=== PATIENT | female | born 1930 | race Caucasian/White ===

== ENCOUNTER 2018-05-23 01:25 | Emergency (ER) | payer MEDICARE, OTHER ==
[~2018-05-23] VITALS: Ht 157.5 cm; Wt 92.2 kg
[~2018-05-23 01:25] MED LIST: ASPI81TA85 PO; BISO5TAB5 PO; CLEADRO8 OU; CORACAP6 PO; FISH5CAP PO; IRBE150T12 PO; KLOR1TAB65 PO; LASI40TA9 PO; LATA0.0013 OU; LIDO5DIS41 TD; MOTR200T44 PO; MULTCAP PO; PERC5TAB12 PO; PRAV40TA PO; TRAM50TA2 PO; VALI2TAB PO; VITA100067 PO; VITAD1000T PO; [UNRECOGNIZED DRUG - CODE] PO
[2018-05-23] MEDS ORDERED: FLUO20CA19 (01:37)
[2018-05-23] MEDS ORDERED: TORS10TA3 (01:37)
[2018-05-23] MEDS ORDERED: POTA1TAB21 (01:37)
[2018-05-23] MEDS ORDERED: ACETAMINOPHEN TAB 650MG DOSE (2X325MG) PO ONE (03:45)
[2018-05-23 03:59] VITALS: BP 168/75
--- NOTE | 2018-05-23 08:20 | REP ---
Right rib series: Five views including PA chest. History: Injury in a fall. Comparison study: January 11, 2016. Findings: Frontal view of the chest show EKG monitoring electrodes. The aorta is tortuous and calcific as before. Heart is not enlarged. There is no evidence of pneumothorax or hydrothorax. Lung quinones are clear. 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 There is diffuse osteopenia. No acute rib fracture is appreciated. No bony destructive lesion is seen. Impression: No rib fractures seen. Electronically Signed by Zeke Horne MD 05/23/2018 09:12 A
== END 2018-05-23 04:01 | disposition home or self-care (01) ==
LOC: M ED 01:25
DX: S20.211A Contusion of right front wall of thorax, initial encounter (principal); W01.0XXA Fall on same level from slipping, tripping and stumbling without subsequent striking against object, initial encounter; Y92.099 Unspecified place in other non-institutional residence as the place of occurrence of the external cause; Y93.9 Activity, unspecified; Y99.9 Unspecified external cause status; I50.9 Heart failure, unspecified; I25.2 Old myocardial infarction; I10 Essential (primary) hypertension; E78.5 Hyperlipidemia, unspecified; M10.9 Gout, unspecified; Z79.82 Long term (current) use of aspirin; Z79.899 Other long term (current) drug therapy; Z88.2 Allergy status to sulfonamides

== ENCOUNTER 2019-01-21 12:56 | Emergency (ER) | payer MEDICARE, OTHER ==
[~2019-01-21] VITALS: Ht 160 cm; Wt 95.5 kg
[~2019-01-21 12:56] MED LIST changes: -BISO5TAB5 PO; +BISO5TAB9 PO; +CHOL100029 PO; +FLUO20CA19; +POTA1TAB21; +TORS10TA3; -VITAD1000T PO
--- NOTE | 2019-01-21 13:43 | REP ---
Clinical: Trauma. Technique: AP, lateral, bilateral oblique views of the right ankle. Findings: There is a nondisplaced fracture of the lateral malleolus/distal fibular metaphysis with overlying soft tissue swelling. Underlying age-related osteopenia and degenerative changes noted. Lateral view demonstrates calcaneal heal spur. Impression: Lateral malleolus/fibular metaphyseal fracture with overlying soft tissue swelling. Electronically Signed by Manoj Anton MD 01/21/2019 01:34 P
[2019-01-21 14:50] VITALS: BP 152/72
== END 2019-01-21 14:52 | disposition home or self-care (01) ==
LOC: M ED 12:56
DX: S82.64XA Nondisplaced fracture of lateral malleolus of right fibula, initial encounter for closed fracture (principal); W19.XXXA Unspecified fall, initial encounter; Y92.099 Unspecified place in other non-institutional residence as the place of occurrence of the external cause; Y93.9 Activity, unspecified; Y99.9 Unspecified external cause status; I25.2 Old myocardial infarction; I10 Essential (primary) hypertension; H40.9 Unspecified glaucoma; Z79.82 Long term (current) use of aspirin; Z79.899 Other long term (current) drug therapy; Z88.2 Allergy status to sulfonamides
CPT/HCPCS: 29515; 73610; 99283; G0463

== ENCOUNTER → 2019-02-05 | Outpatient (CLI) | payer MEDICARE, OTHER ==
[~2019-02-05] MED LIST changes: +BISO5TAB14 PO; -BISO5TAB9 PO
--- NOTE | 2019-02-05 13:50 | REP ---
Chest x-ray: Three views. History: Dizziness. Cough. Comparison study May 23, 2018. Findings: The lungs are symmetrically aerated and clear. Pleural angles are sharp. The heart is borderline in size, CT ratio 48.1%. No pleural effusion is seen. Pulmonary vasculature is not increased. No infiltrate is seen. The aorta is tortuous. There are degenerative changes in the thoracic spine. There are clips in right upper quadrant of the abdomen. Impression: Borderline heart size unchanged . Otherwise no acute disease. No infiltrate seen. Electronically Signed by Zeke Horne MD 02/05/2019 01:42 P
== END ==
LOC: M LRY 13:26
PROVIDERS: ATTEND Physician Assistant
DX: R42 Dizziness and giddiness (principal); R05 Cough; M51.34 Other intervertebral disc degeneration, thoracic region
CPT/HCPCS: 71046; 82948; G0463

== ENCOUNTER 2019-04-04 03:22 | Inpatient (IN) | payer MEDICARE, OTHER ==
[~2019-04-04] VITALS: Ht 160 cm; Wt 99.1 kg
[~2019-04-04 03:22] MED LIST changes: -FLUO20CA19; +FLUO20CA22 PO; -IRBE150T12 PO; +IRBE150T7 PO; -POTA1TAB21; +POTA1TAB21 PO; -TORS10TA3; +TORS10TA3 PO
[2019-04-04 04:00] LABS: HEMATOCRIT 39.4 % (36.0-47.0); HEMOGLOBIN 13.3 g/dl (12.0-15.5); MEAN CORPUSCULAR HEMOGLOBIN 31.5 pg (27.0-33.0); MEAN CORPUSCULAR HGB CONC 33.8 g/dl (32.0-36.5); MEAN CORPUSCULAR VOLUME 93.4 fl (80.0-96.0); PLATELET COUNT, AUTOMATED 137 10^3/uL (150-450); RED BLOOD COUNT 4.22 10^6/uL (4.00-5.40); WHITE BLOOD COUNT 27.4 10^3/uL (4.0-10.0)
[2019-04-04 04:12] LABS: INR 1.36; PROTHROMBIN TIME 16.5 SECONDS (11.8-14.0)
[2019-04-04 04:27] LABS: ALBUMIN 3.3 GM/DL (3.2-5.2); ALT/SGPT 41 U/L (12-78); BILIRUBIN,TOTAL 1.6 MG/DL (0.2-1.0); BLOOD UREA NITROGEN 15 MG/DL (7-18); CALCIUM LEVEL 8.7 MG/DL (8.8-10.2); CARBON DIOXIDE LEVEL 27 MEQ/L (21-32); CHLORIDE LEVEL 100 MEQ/L (98-107); CK-MB VALUE MASS 1.6 NG/ML (<3.6); CPK CREATINE PHOSPHOKINASE 79 U/L (26-192); CREATININE FOR GFR 0.86 MG/DL (0.55-1.30); GLOMERULAR FILTRATION RATE > 60.0 (>32); GLUCOSE, FASTING 114 MG/DL (70-100); LIPASE 45 U/L (73-393); MB/CK RELATIVE INDEX 2.03 (< OR =4); POTASSIUM SERUM 4.1 MEQ/L (3.5-5.1); SODIUM LEVEL 135 MEQ/L (136-145); TOTAL PROTEIN 6.4 GM/DL (6.4-8.2); TROPONIN I < 0.02 NG/ML (< 0.10)
--- NOTE | 2019-04-04 06:44 | REPVR ---
PROCEDURE INFORMATION: Exam: XR Chest, 2 Views Exam date and time: 04/04/2019 4:03 AM Age: 89 years old Clinical indication: Shortness of breath; Additional info: SOB TECHNIQUE: Imaging protocol: XR of the chest Views: 2 views. COMPARISON: CR CHEST 2 VIEW 02/05/2019 1:30 PM FINDINGS: Lungs: There is a 6.1 x 6.8 cm right upper lobe lung opacity. Pleural space: Unremarkable. No pleural effusion. No pneumothorax. Heart/Mediastinum: Unremarkable. No cardiomegaly. Bones/joints: 1.3 cm calcifications seen inferior to the right shoulder joint. Other findings: Post cholecystectomy surgical clip seen in the right upper abdominal quadrant. IMPRESSION: 1. 6.1 x 6.8 cm ill-defined right upper lobe lung opacity possibly pneumonic infiltrate in the right clinical setting however other underlying etiologies cannot be excluded. Correlate clinically. Follow-up to resolution is recommended. 2. 1.3 cm calcification inferior to the right shoulder joint. The differential includes loose joint body. Correlate with clinical history and symptoms. If indicated MRI may be obtained for further evaluation. Electronically signed by: Alli Crisostomo On 04/04/2019 06:44:06 AM
[2019-04-04] MEDS ORDERED: ACETAMINOPHEN TAB 650MG DOSE (2X325MG) PO ONE (06:45)
[2019-04-04] MEDS: NS 1,000 ML IV SCH ×3 (06:52→19:56)
[2019-04-04] MEDS: GASTROGRAFIN SOLUTION 30ML PO SCH ×2 (07:09→08:12)
[2019-04-04] MEDS ORDERED: ISOVUE-370 76% 100ML VIAL (Q9967) As Ordered ONE (08:44)
--- NOTE | 2019-04-04 09:14 | REP ---
Clinical: Acute epigastric pain. Technique: Axial contrast enhanced images from the lung bases to the pubic symphysis using oral (per protocol) and 100 ml Isovue 370 intravenous contrast material with coronal and sagittal re-formations. Comparison: None. Findings: Lung bases are clear. Visualized heart and pericardium normal. Hepatic steatosis noted without focal hepatic lesion. Evidence of prior cholecystectomy. Spleen, pancreas, and bilateral adrenal glands are normal. Kidneys demonstrate age-related changes including scattered cysts measuring up to 1.1 cm diameter. No perinephric stranding or hydronephrosis. The enteric system is without obstruction or acute inflammatory process. Pelvis demonstrates collapsed bladder and age-appropriate uterus/adnexa. No pelvic fluid or ascites. No free air. No adenopathy. Abdominal aorta without aneurysm or dissection. m age-related degenerative changes without obvious acute process. Impression: 1. Hepatic steatosis. 2. Age-related changes to the kidneys with scattered cysts. 3. No acute abdominopelvic pathology appreciated. Electronically Signed by Manoj Anton MD 04/04/2019 09:06 A
[2019-04-04 09:26] LABS: BASO # 0.1 10^3/uL (0.0-0.2); BASO % 0.2 % (0.0-1.0); LYMPH # 1.2 10^3/uL (1.5-5.0); LYMPH % 4.4 % (24.0-44.0); MONO # 1.7 10^3/uL (0.0-0.8); MONO % 6.2 % (0.0-5.0); NEUTROPHILS # 23.2 10^3/uL (1.5-8.5); NEUTROPHILS % 87.1 % (36.0-66.0)
[2019-04-04] MEDS ORDERED: AZITHROMYCIN INJ 500 MG, VIAL MATE ADAPTER 1 EACH in D5W 250 ML IV ONE (09:30)
[2019-04-04] MEDS ORDERED: cefTRIAXone SOD 2 GM in D5W MINI-BAG PLUS 50 ML IV ONE (09:30)
[2019-04-04] MEDS ORDERED: FISH1000 PO (10:18)
[2019-04-04] MEDS ORDERED: XALA0.007 OU (10:18)
[2019-04-04] MEDS ORDERED: ACET-897 PO (10:18)
[2019-04-04] MEDS ORDERED: OSEL75CA PO (10:18)
[2019-04-04] MEDS ORDERED: CALC600T60 PO (10:18)
[2019-04-04] MEDS ORDERED: DOCUSATE SODIUM 100 MG CAP PO PRN (11:15)
[2019-04-04] MEDS: ACETAMINOPHEN TAB 650MG DOSE (2X325MG) PO PRN ×3 (11:40→20:04)
--- NOTE | 2019-04-04 14:22 | HPE ---
DATE OF ADMISSION: 04/04/2019 TIME: Approximately 11:00 a.m. CHIEF COMPLAINT: Abdominal pain. HISTORY OF PRESENT ILLNESS: Mrs. Mckeon is an 89-year-old woman who has a past medical history of hypertension, hyperlipidemia, degenerative disc disease, who presented to the hospital with complaints of abdominal pain. The patient reports developing nausea, vomiting, diarrhea that started approximately 5 days ago associated with abdominal pain. She has been slowly developing worsening symptoms with mild productive cough. She denies having any fevers or chills. Her daughter has been recently sick with pneumonia, as has her . She was evaluated in the emergency department. Chest x-ray showed that she had a right [place] [id number]. To investigate abdominal pain, a complete metabolic profile as done, which was found to be normal. The patient underwent a CT of the abdomen and pelvis, which showed no acute intraabdominal pathology. She was treated with intravenous Rocephin, as well as Zithromax and admitted to the hospitalist service for treatment of community acquired pneumonia. ALLERGIES: SULFA medications. CURRENT HOME MEDICATIONS: - Tylenol 500 mg at bedtime - baby aspirin daily - bisoprolol 5 mg at bedtime - calcium carbonate 600 mg twice a day - fluoxetine 20 mg at bedtime - irbesartan 150 mg at bedtime - Xalatan 0.005% one drop OU at night - multivitamin one capsule daily - fish oil 1000 mg twice a day - potassium 24 mg by mouth daily - pravastatin 40 mg at bedtime - torsemide 10 mg by mouth daily PAST MEDICAL HISTORY: Notable for: 1. Hypertension. 2. Hyperlipidemia. 3. Glaucoma. 4. Degenerative disc disease. PAST SURGICAL HISTORY: Notable for: 1. Cholecystectomy. 2. section. 3. Tonsillectomy. SOCIAL HISTORY: The patient is and resides at home with her . She is retired. She does not use any alcohol, tobacco or illicit drugs. She lists herself as a FULL CODE with her as her surrogate medical decision-maker. FAMILY HISTORY: Notable for both parents who had heart disease. REVIEW OF SYSTEMS: 12-system reviewed with the patient and otherwise negative. She denies having any recent travel. PHYSICAL EXAMINATION: The patient's temperature is 98.9, pulse 72 and regular, respiratory rate is 18, blood pressure 120/58, oxygen saturation 94% on room air. GENERAL: The patient is alert and oriented times three. She does not appear to be acutely ill. HEAD: Atraumatic, normocephalic. ENT: Pupils are symmetric and reactive to light. Oropharynx is clear. NECK: Supple. LUNGS: Clear to auscultation without rales, wheezes or rhonchi. HEART: S1, S2. ABDOMEN: Soft, nontender, nondistended with active bowel sounds. EXTREMITIES: Without cyanosis, clubbing or edema. NEUROLOGIC: Cranial nerves II through XII are grossly intact. No focal deficits are appreciated. RELEVANT LABORATORIES: Chest x-ray shows left upper lobe infiltrate. CT of the abdomen and pelvis showed no acute pathology, reference full report for details. Sodium 135, potassium 4.1, chloride 100, bicarbonate 27, BUN 15, creatinine 0.86, lipase is 45, white count 65933, hemoglobin 13, hematocrit 38, platelet counts are 137,000. IMPRESSION: 1. Community acquired pneumonia with leukocytosis of 27,000. 2. Mild thrombocytopenia, likely due to acute infection. 3. Hypertension. 4. Hyperlipidemia. PLAN: The patient will be admitted to inpatient status. She will have more than two midnight hospital stay. She will be continued on intravenous Rocephin and Zithromax. Blood cultures times two have been drawn in the emergency room and are pending. We will check sputum gram-stain and culture, Legionella, as well as Strep antigens. She will be continued on the majority of her home medications, please see medical orders for details. She will be a FULL CODE. She will be placed on Lovenox for deep vein thrombosis (DVT) prophylaxis. We will monitor her platelet count while she is receiving Lovenox.
[2019-04-04 15:00] VITALS: BP 137/66
[2019-04-04] MEDS: ENOXAPARIN 40 MG/0.4 ML SYRINGE (J1650) SC SCH (15:01)
[2019-04-04] MEDS: DOXYCYCLINE HYCLATE 100 MG in D5W MINI-BAG PLUS 100 ML IV SCH ×2 (15:01→23:24)
[2019-04-04] MEDS: guaiFENesin/CODEINE SYRUP 5 ML UDC PO PRN (16:33)
[2019-04-04] MEDS: PRAVASTATIN 20 MG TAB PO SCH (20:00)
[2019-04-04] MEDS: LATANOPROST 0.005% OPHTH SOLN 2.5 ML OU SCH (20:00)
[2019-04-04] MEDS: IRBESARTAN 150 MG TAB PO SCH (20:00)
[2019-04-04] MEDS: FLUoxetine 20 MG CAP PO SCH (20:00)
[2019-04-04] MEDS: bisoproloL fumarate 5 MG TAB PO SCH (20:01)
--- NOTE | 2019-04-04 20:08 | ECGEPIP ---
[facility] - ED Test Date: 2019-04-04 Pat Name: EDDIE BOWMAN Department: Room: - Gender: Female [employer]: : 1930 Requested By: ELEANOR Yuan Order Number: [id number] Reading MD: Concha Hale Measurements Intervals [place] Rate: 76 P: 42 HI: 169 QRS: 4 QRSD: 94 T: 51 QT: 356 QTc: 402 Interpretive Statements SINUS RHYTHM NSTTW abnormalities SIMILAR 01/12/16 Electronically Signed on 04-04-2019 20:07:53 EST by Concha Hale
[2019-04-04 22:00] VITALS: BP 137/66
[2019-04-05] MEDS: ACETAMINOPHEN TAB 650MG DOSE (2X325MG) PO PRN ×3 (02:35→23:31)
[2019-04-05] MEDS: NS 1,000 ML IV SCH ×4 (02:36→20:25)
[2019-04-05] MEDS: CETIRIZINE (ZyrTEC) 10 MG TAB PO SCH (02:52)
[2019-04-05 06:00] VITALS: BP 139/68
[2019-04-05 06:51] LABS: ALBUMIN 2.5 GM/DL (3.2-5.2); ALT/SGPT 35 U/L (12-78); BILIRUBIN,TOTAL 0.6 MG/DL (0.2-1.0); BLOOD UREA NITROGEN 10 MG/DL (7-18); CALCIUM LEVEL 7.5 MG/DL (8.8-10.2); CARBON DIOXIDE LEVEL 25 MEQ/L (21-32); CHLORIDE LEVEL 109 MEQ/L (98-107); CREATININE FOR GFR 0.65 MG/DL (0.55-1.30); GLOMERULAR FILTRATION RATE > 60.0 (>32); GLUCOSE, FASTING 90 MG/DL (70-100); POTASSIUM SERUM 3.6 MEQ/L (3.5-5.1); SODIUM LEVEL 140 MEQ/L (136-145); TOTAL PROTEIN 5.8 GM/DL (6.4-8.2)
[2019-04-05 08:16] LABS: HEMOGLOBIN 11.8 g/dl (12.0-15.5); MEAN CORPUSCULAR HEMOGLOBIN 32.2 pg (27.0-33.0); MEAN CORPUSCULAR HGB CONC 33.7 g/dl (32.0-36.5); MEAN CORPUSCULAR VOLUME 95.4 fl (80.0-96.0); PLATELET COUNT, AUTOMATED 118 10^3/uL (150-450); RED BLOOD COUNT 3.67 10^6/uL (4.00-5.40); WHITE BLOOD COUNT 23.7 10^3/uL (4.0-10.0)
[2019-04-05] MEDS: ASPIRIN 81 MG ENTERIC TAB PO SCH (08:34)
[2019-04-05] MEDS: TORSEMIDE 10 MG TABLET PO SCH (08:34)
[2019-04-05] MEDS: POTASSIUM CHLORIDE 10 MEQ SR TABLET PO SCH (08:34)
[2019-04-05] MEDS: ENOXAPARIN 40 MG/0.4 ML SYRINGE (J1650) SC SCH (08:35)
[2019-04-05] MEDS: cefTRIAXone SOD 1 GM in D5W MINI-BAG PLUS 50 ML IV SCH (09:53)
[2019-04-05] MEDS ORDERED: NYSTATIN 100,000 UNITS/GM TOPICAL PWD 15 GM TOP PRN (10:30)
[2019-04-05] MEDS ORDERED: AZITHROMYCIN INJ 500 MG, VIAL MATE ADAPTER 1 EACH in D5W 250 ML IV SCH (11:00)
[2019-04-05] MEDS: DOXYCYCLINE HYCLATE 100 MG in D5W MINI-BAG PLUS 100 ML IV SCH ×2 (11:24→23:31)
[2019-04-05] MEDS: guaiFENesin/CODEINE SYRUP 5 ML UDC PO PRN (11:24)
--- NOTE | 2019-04-05 12:27 | IPNPDOC ---
Subjective Date Seen The patient was seen on 04/05/19. Subjective Chief Complaint/HPI Jessica is feeling better this morning, reports sob with activity. she is not requiring oxygen and has not had any fevers. Objective Physical Examination General Exam: Positive: Alert Eye Exam: Positive: EOMI; Negative: Sclera icteric ENT Exam: Positive: Atraumatic Neck Exam: Positive: Supple Chest Exam: Positive: Clear to auscultation, Normal air movement Heart Exam: Positive: Rate Normal, Regular Rhythm Abdomen Exam: Positive: Normal bowel sounds Extremity Exam: Negative: Clubbing, Cyanosis, Edema Skin Exam: Positive: Nl turgor and temperature Neuro Exam: Positive: Normal Speech, Strength at 5/5 X4 ext Assessment /Plan Assessment # Community acquired pneumonia with leukocytosis - wbc trending lower with IV abx therapy - likely needs another 2 days of IV abx prior to discharge home - CBC in am # Mild thrombocytopenia - stable, continue to monitor platelet count on lovenox # Hypertension - controlled with torsemide + avapro + bisprolol # Hyperlipidemia - stable on atorvastatin Plan/VTE VTE Prophylaxis Ordered?: Yes VTE Exclusion Mechanical Proph: N/A:VTE Prophy Ordered VTE Exclusion Pharmacological: N/A:VTE Prophy Ordered VS, I&O, 24H, Fishbone Vital Signs/I&O Vital Signs Date Time Temp Pulse Resp B/P (MAP) Pulse Ox O2 Delivery O2 Flow Rate FiO2 04/05/19 06:00 97.8 68 18 139/68 (91) 91 Room Air I&O- Last 24 Hours up to 6 AM 04/05/19 06:00 Intake Total 3070 ml Output Total 50 ml Balance 3020 ml Laboratory Data 24H LABS Laboratory Tests 2 04/05/19 05:41: 04/05/19 06:07: Nucleated Red Blood Cells % (auto) 0.0 04/05/19 06:10: Anion Gap 6L, Glomerular Filtration Rate > 60.0, Calcium Level 7.5L, Total Bilirubin 0.6#, Aspartate Amino Transf (AST/SGOT) 29, Alanine Aminotransferase (ALT/SGPT) 35, Alkaline Phosphatase 55, Total Protein 5.8L, Albumin 2.5#L, Albumin/Globulin Ratio 0.76L CBC/BMP Laboratory Tests 04/05/19 06:07 04/05/19 06:10 Microbiology Microbiology 04/05/19 Gram Stain, Received Pending 04/05/19 Sputum Culture, Received Pending 04/04/19 Blood Culture - Preliminary, Resulted No growth after 24 hours . All specim... 04/04/19 Blood Culture - Preliminary, Resulted No growth after 24 hours . All specim... NIGHAT LONG MD Apr 05, 2019 12:27
[2019-04-05 14:00] VITALS: BP 129/71
[2019-04-05] MEDS: ALBUTEROL SULFATE 2.5 MG/0.5 ML INH NEB SOLN INH PRN (16:20)
[2019-04-05 20:22] VITALS: BP 131/63
[2019-04-05] MEDS: IRBESARTAN 150 MG TAB PO SCH (20:22)
[2019-04-05] MEDS: PRAVASTATIN 20 MG TAB PO SCH (20:22)
[2019-04-05] MEDS: FLUoxetine 20 MG CAP PO SCH (20:22)
[2019-04-05] MEDS: LATANOPROST 0.005% OPHTH SOLN 2.5 ML OU SCH (20:22)
[2019-04-05] MEDS: bisoproloL fumarate 5 MG TAB PO SCH (20:22)
[2019-04-05 22:00] VITALS: BP 131/63
[2019-04-06] MEDS: ACETAMINOPHEN TAB 650MG DOSE (2X325MG) PO PRN ×2 (03:38→12:27)
[2019-04-06] MEDS: ALBUTEROL SULFATE 2.5 MG/0.5 ML INH NEB SOLN INH PRN ×2 (03:52→13:21)
[2019-04-06 06:00] VITALS: BP 137/69
[2019-04-06] MEDS: NS 1,000 ML IV SCH ×2 (06:07→11:59)
[2019-04-06 06:49] LABS: HEMATOCRIT 35.5 % (36.0-47.0); HEMOGLOBIN 11.8 g/dl (12.0-15.5); MEAN CORPUSCULAR HEMOGLOBIN 31.6 pg (27.0-33.0); MEAN CORPUSCULAR HGB CONC 33.2 g/dl (32.0-36.5); MEAN CORPUSCULAR VOLUME 95.2 fl (80.0-96.0); PLATELET COUNT, AUTOMATED 129 10^3/uL (150-450); RED BLOOD COUNT 3.73 10^6/uL (4.00-5.40); WHITE BLOOD COUNT 14.3 10^3/uL (4.0-10.0)
[2019-04-06] MEDS: cefTRIAXone SOD 1 GM in D5W MINI-BAG PLUS 50 ML IV SCH (09:33)
[2019-04-06] MEDS: TORSEMIDE 10 MG TABLET PO SCH (09:34)
[2019-04-06] MEDS: CETIRIZINE (ZyrTEC) 10 MG TAB PO SCH (09:34)
[2019-04-06] MEDS: ASPIRIN 81 MG ENTERIC TAB PO SCH (09:34)
[2019-04-06] MEDS: POTASSIUM CHLORIDE 10 MEQ SR TABLET PO SCH (09:34)
[2019-04-06] MEDS: ENOXAPARIN 40 MG/0.4 ML SYRINGE (J1650) SC SCH (09:34)
[2019-04-06] MEDS ORDERED: CEFU50TA PO (10:34)
--- NOTE | 2019-04-06 10:41 | IPNPDOC ---
Subjective Date Seen The patient was seen on 04/06/19. Subjective Chief Complaint/HPI c/o wheezing overnight, none this morning Objective Physical Examination General Exam: Positive: Alert Eye Exam: Positive: EOMI; Negative: Sclera icteric ENT Exam: Positive: Atraumatic Neck Exam: Positive: Supple Chest Exam: Positive: Clear to auscultation, Normal air movement; Negative: Rales, Rhonchi, Wheezing Heart Exam: Positive: Rate Normal, Regular Rhythm Abdomen Exam: Positive: Normal bowel sounds Extremity Exam: Negative: Clubbing, Cyanosis, Edema Skin Exam: Positive: Nl turgor and temperature Neuro Exam: Positive: Normal Speech, Strength at 5/5 X4 ext Assessment /Plan Assessment # Community acquired pneumonia with leukocytosis - wbc continues to improve - discharge home today with cefuroxime 500 mg bid x 5 days more - not requiring oxygen # Mild thrombocytopenia - stable, with improvement from yesterday # Hypertension - controlled with torsemide + avapro + bisprolol # Hyperlipidemia - stable on atorvastatin Plan/VTE VTE Prophylaxis Ordered?: Yes VTE Exclusion Mechanical Proph: N/A:VTE Prophy Ordered VTE Exclusion Pharmacological: N/A:VTE Prophy Ordered VS, I&O, 24H, Fishbone Vital Signs/I&O Vital Signs Date Time Temp Pulse Resp B/P (MAP) Pulse Ox O2 Delivery O2 Flow Rate FiO2 04/06/19 06:00 97.0 60 19 137/69 (91) 95 Room Air I&O- Last 24 Hours up to 6 AM 04/06/19 06:00 Intake Total 850 ml Output Total 150 ml Balance 700 ml Laboratory Data 24H LABS Laboratory Tests 2 04/06/19 06:16: Nucleated Red Blood Cells % (auto) 0.0 CBC/BMP Laboratory Tests 04/06/19 06:16 Microbiology Microbiology 04/05/19 Gram Stain - Final, Complete 04/05/19 Sputum Culture - Final, Complete 04/04/19 Blood Culture - Preliminary, Resulted No Growth after 48 hours. All Specime... 04/04/19 Blood Culture - Preliminary, Resulted No Growth after 48 hours. All Specime... NIGHAT LONG MD Apr 06, 2019 10:41
[2019-04-06] MEDS: DOXYCYCLINE HYCLATE 100 MG in D5W MINI-BAG PLUS 100 ML IV SCH (11:57)
--- NOTE | 2019-04-09 19:41 | DSES ---
DATE OF ADMISSION: 04/04/2019 DATE OF DISCHARGE: 04/06/2019 DISCHARGE DIAGNOSES: 1. Community-acquired pneumonia. 2. Mild thrombocytopenia. 3. Hypertension. 4. Hyperlipidemia. PROCEDURES PERFORMED DURING THIS HOSPITALIZATION: None., CONSULTANTS ON THE CASE: None. DISPOSITION: Patient is discharged to home in stable condition,. DISCHARGE INSTRUCTIONS: Patient is instructed to take antibiotics as prescribed. Followup with her primary care provider (PCP) within a week. CONDITION ON DISCHARGE: Improved from admission. IMAGING STUDIES OBTAINED DURING THE PATIENT'S HOSPITAL STAY: 1. Chest x-ray, which showed that she had a right upper lobe lung opacity. 2. CT of the abdomen and pelvis, which showed hepatic steatosis, age-related changes to the kidneys with scattered cysts. No acute intraabdominal pathology was noted. DISCHARGE MEDICATIONS: - ceftizoxime 500 mg twice a day for five days Patient is advised to resume her previous home medications without any changes at discharge. RELEVANT LABORATORIES: Sputum culture could not be completed secondary to contamination with oropharyngeal organisms. Blood cultures times two showed no growth. White blood cell count on admission 27,000, with treatment with intravenous antibiotics improved to 14.3; hemoglobin 9.8, hematocrit 35.5, platelet count 129,000. Sodium 140, potassium 3.6, chloride 109, bicarbonate 25, anion gap 6, BUN 10, creatinine 0.65, glucose 90. Procalcitonin was 1.84. Lipase 45. Urinalysis was unremarkable, non-indicative of infection. Urine Legionella, Streptococcus pneumoniae and urine Streptococcus pneumoniae antigens are still pending at the time of discharge. HOSPITAL COURSE: Jessica is an 89-year-old woman who had been experiencing abdominal pain, nausea, vomiting and diarrhea at home. She has had several sick contacts in her family. She presented to the hospital. She was found to have pneumonia on chest x-ray. A CT of her abdomen and pelvis was obtained to rule out any abdominal pathology. None was found. She was admitted to the hospitalist service and placed on intravenous antibiotics. Her preliminary white count on admission was in the range of 26 or 27,000. She was treated with intravenous antibiotics consisting of Rocephin and Zithromax with improvement of her white blood cell count. After 48 hours, she was doing better and she was subsequently discharged home in stable condition. A total of 30 minutes was spent completing all discharge paperwork.
[2019-04-10 00:07] LABS: BODY FLUID CULTURE Not indicated. (.); LEGIONELLA ANTIGEN URINE Negative (Negative); ORGANISM ID Not indicated. (.); SPECIMEN SOURCE Urine (.); URINE STREP PNEUMONIAE ANTIGEN Positive (Negative)
== END 2019-04-06 14:19 | disposition home or self-care (01) | DRG 195 ==
LOC: M ED 03:22 → M ED INP 11:02 → ENRESERVDT 13:42 → ENRESERVTM 13:42 → M MSPAV 14:25
PROVIDERS: ADMIT Internal Medicine; ATTEND Internal Medicine
DX: J18.9 Pneumonia, unspecified organism (principal); D69.6 Thrombocytopenia, unspecified; I10 Essential (primary) hypertension; E78.5 Hyperlipidemia, unspecified; Z79.899 Other long term (current) drug therapy; Z79.82 Long term (current) use of aspirin; H40.9 Unspecified glaucoma

== ENCOUNTER → 2020-01-10 | Outpatient (CLI) | payer MEDICARE, OTHER ==
[~2020-01-10] MED LIST changes: +ACET-897 PO; -ASPI81TA85 PO; +ASPI81TA86 PO; +CALC600T60 PO; +CEFU50TA PO; +FISH1000 PO; +OSEL75CA PO; +XALA0.007 OU
[2020-01-10 12:44] LABS: HEMATOCRIT 43.4 % (36.0-47.0); HEMOGLOBIN 14.1 g/dl (12.0-15.5); MEAN CORPUSCULAR HEMOGLOBIN 30.9 pg (27.0-33.0); MEAN CORPUSCULAR HGB CONC 32.5 g/dl (32.0-36.5); PLATELET COUNT, AUTOMATED 160 10^3/uL (150-450); RED BLOOD COUNT 4.57 10^6/uL (4.00-5.40); WHITE BLOOD COUNT 6.6 10^3/uL (4.0-10.0)
[2020-01-10 13:18] LABS: HEMOGLOBIN A1c 5.5 %
[2020-01-10 14:02] LABS: ALBUMIN 3.2 GM/DL (3.2-5.2); ALT/SGPT 35 U/L (12-78); BILIRUBIN,TOTAL 0.6 MG/DL (0.2-1.0); BLOOD UREA NITROGEN 15 MG/DL (7-18); CALCIUM LEVEL 8.7 MG/DL (8.8-10.2); CARBON DIOXIDE LEVEL 28 MEQ/L (21-32); CHLORIDE LEVEL 110 MEQ/L (98-107); CHOLESTEROL LEVEL 152 MG/DL (<200); CHOLESTEROL RISK RATIO 2.491 (<5); GLOMERULAR FILTRATION RATE > 60.0 (>32); GLUCOSE, FASTING 85 MG/DL (70-100); HDL CHOLESTEROL 61 MG/DL (>40); LDL CHOLESTEROL 72 MG/DL (<100); NON-HDL-C 91 MG/DL; POTASSIUM SERUM 4.2 MEQ/L (3.5-5.1); SODIUM LEVEL 142 MEQ/L (136-145); TOTAL PROTEIN 6.4 GM/DL (6.4-8.2); TRIGLYCERIDES LEVEL 95 MG/DL (<150)
[2020-01-10 14:13] LABS: TOTAL 25(OH) VITAMIN D 37.6 NG/ML (30.0-100.0)
== END ==
LOC: M LAB 11:45
PROVIDERS: ATTEND Family Medicine
DX: D64.9 Anemia, unspecified (principal); R53.83 Other fatigue; E03.9 Hypothyroidism, unspecified

== ENCOUNTER 2020-02-09 05:12 | Emergency (ER) | payer MEDICARE, OTHER ==
[~2020-02-09] VITALS: Ht 160 cm; Wt 91.8 kg
[2020-02-09] MEDS ORDERED: NS 1,000 ML IV ONE (06:00)
[2020-02-09 06:12] LABS: BASO % 0.5 % (0.0-1.0); EOS # 0.1 10^3/uL (0.0-0.5); EOS % 1.1 % (0.0-3.0); HEMATOCRIT 43.9 % (36.0-47.0); HEMOGLOBIN 14.1 g/dl (12.0-15.5); LYMPH # 1.6 10^3/uL (1.5-5.0); LYMPH % 18.6 % (24.0-44.0); MEAN CORPUSCULAR HEMOGLOBIN 29.9 pg (27.0-33.0); MEAN CORPUSCULAR HGB CONC 32.1 g/dl (32.0-36.5); MONO # 0.9 10^3/uL (0.0-0.8); MONO % 10.4 % (0.0-5.0); NEUTROPHILS # 6.1 10^3/uL (1.5-8.5); NEUTROPHILS % 69.2 % (36.0-66.0); PLATELET COUNT, AUTOMATED 153 10^3/uL (150-450); RED BLOOD COUNT 4.72 10^6/uL (4.00-5.40); WHITE BLOOD COUNT 8.8 10^3/uL (4.0-10.0)
[2020-02-09 06:49] LABS: BLOOD UREA NITROGEN 28 MG/DL (7-18); CARBON DIOXIDE LEVEL 31 MEQ/L (21-32); CHLORIDE LEVEL 100 MEQ/L (98-107); CREATININE FOR GFR 0.98 MG/DL (0.55-1.30); GLOMERULAR FILTRATION RATE 56.9 (>32); GLUCOSE, FASTING 101 MG/DL (70-100); SODIUM LEVEL 138 MEQ/L (136-145)
[2020-02-09 06:50] LABS: CALCIUM LEVEL 8.5 MG/DL (8.8-10.2); CK-MB VALUE MASS 1.2 NG/ML (<3.6); CPK CREATINE PHOSPHOKINASE 69 U/L (26-192); FREE T4 1.15 NG/DL (0.76-1.46); MAGNESIUM LEVEL 2.3 MG/DL (1.8-2.4); MB/CK RELATIVE INDEX 1.74 (< OR =4); NT-PRO BNP 45 PG/ML (<450); TROPONIN I < 0.02 NG/ML (< 0.10)
--- NOTE | 2020-02-09 07:02 | REPVR ---
PROCEDURE INFORMATION: Exam: XR Chest, 1 View Exam date and time: 02/09/2020 6:09 AM Age: 89 years old Clinical indication: Other: Chest pain TECHNIQUE: Imaging protocol: XR of the chest Views: 1 view. COMPARISON: CR Chest, 2 view PA, Lat 04/04/2019 3:56 AM FINDINGS: Lungs: A thin linear opacity in the left lower lung field laterally is unchanged, likely linear fibrosis. An opacity previously seen in the right upper lobe is no longer identified.There is currently no significant consolidation. Pleural space: No pleural effusions or pneumothorax identified. Heart/Mediastinum: There is stable mild cardiomegaly. Vasculature: Aortic knob calcifications are noted. Bones/joints: There are degenerative changes in both shoulders and endplate spurs are seen at multiple levels in the spine, not fully assessed. IMPRESSION: No evidence of acute pleural or parenchymal disease. Electronically signed by: Madiha Dumont On 02/09/2020 07:02:13 AM
[2020-02-09 12:43] LABS: CK-MB VALUE MASS 1.2 NG/ML (<3.6); CPK CREATINE PHOSPHOKINASE 61 U/L (26-192); MB/CK RELATIVE INDEX 1.97 (< OR =4); TROPONIN I < 0.02 NG/ML (< 0.10)
[2020-02-09 15:47] VITALS: BP 132/61
--- NOTE | 2020-02-10 12:20 | ECGEPIP ---
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
--- NOTE | 2020-02-12 00:27 | ECGEPIP ---
[facility] - ED Test Date: 2020-02-09 Pat Name: EDDIE BOWMAN Department: Room: - Gender: Female [employer]ulation: : 1930 Requested By: KHLOE Truong Order Number: [id number] Reading MD: William Saunders Measurements Intervals [place] Rate: 60 P: 41 CO: 196 QRS: 14 QRSD: 97 T: 63 QT: 441 QTc: 441 Interpretive Statements SINUS RHYTHM NONSPECIFIC T-WAVE ABNORMALITY SIMILAR TO PRIOR ON SAME DATE Electronically Signed on 02-12-2020 0:27:19 EST by William Saunders
== END 2020-02-09 15:49 | disposition home or self-care (01) ==
LOC: M ED 05:12
DX: I25.10 Atherosclerotic heart disease of native coronary artery without angina pectoris (principal); I50.9 Heart failure, unspecified; R00.2 Palpitations; I10 Essential (primary) hypertension; Z79.82 Long term (current) use of aspirin; Z79.899 Other long term (current) drug therapy; Z88.2 Allergy status to sulfonamides; Z88.1 Allergy status to other antibiotic agents

== ENCOUNTER 2020-04-04 19:23 | Emergency (ER) | payer MEDICARE, OTHER ==
[~2020-04-04] VITALS: Ht 149.9 cm; Wt 90.0 kg
[2020-04-04] MEDS ORDERED: IRBESARTAN 150MG TAB PO ONE (19:45)
[2020-04-04] MEDS ORDERED: bisoproloL fumarate 5 MG TAB PO ONE (19:45)
--- OUTSIDE RECORDS SUMMARY | 2020-04-04 19:47 | CCD ---
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 Name Role Phone Avani Thayer Unavailable Unavailable Avani Thayer Unavailable Unavailable Avani Thayer Unavailable Unavailable Avani Thayer PA Unavailable Unavailable ThayerAvani camejo PA Unavailable Unavailable Avani Thayer PA Unavailable Unavailable Avani Thayer PA Unavailable Unavailable ThayerAvani camejo PA Unavailable Unavailable ThayerAvani camejo PA Unavailable Unavailable ThayerAvani camejo PA Unavailable Unavailable ThayerAvani camejo PA Unavailable Unavailable ThayerAvani camejo PA Unavailable Unavailable ThayerAvani camejo PA Unavailable Unavailable Avani Thayer PA Unavailable Unavailable Avani Thayer PA Unavailable Unavailable Avani Thayer PA Unavailable Unavailable Avani Thayer PA Unavailable Unavailable ThayerAvani camejo PA Unavailable Unavailable Thayer, L Cynthia PA Unavailable Unavailable Thayer, L Cynthia PA Unavailable Unavailable Thayer, L Cynthia PA Unavailable Unavailable Thayer, L Cynthia PA Unavailable Unavailable Thayer, L Cynthia PA Unavailable Unavailable Thayer, L Cynthia PA Unavailable Unavailable Thayer, L Cynthia PA Unavailable Unavailable Thayer, L Cynthia PA Unavailable Unavailable Thayer, L Cynthia PA Unavailable Unavailable Thayer, L Cynthia PA Unavailable Unavailable Thayer, L Cynthia PA Unavailable Unavailable Thayer, L Cynthia PA Unavailable Unavailable Thayer, L Cynthia PA Unavailable Unavailable Thayer, L Cynthia PA Unavailable Unavailable Thayer, L Cynthia PA Unavailable Unavailable Thayer, L Cynthia PA Unavailable Unavailable Thayer, L Cynthia PA Unavailable Unavailable Thayer, L Cynthia PA Unavailable Unavailable John Van MD Unavailable Unavailable John Van MD Unavailable Unavailable John Van MD Unavailable Unavailable John Van MD Unavailable Unavailable John Van MD Unavailable Unavailable John Van MD Unavailable Unavailable John Van MD Unavailable Unavailable John Van MD Unavailable Unavailable John Van MD Unavailable Unavailable John Van MD Unavailable Unavailable John Van MD Unavailable Unavailable John Van MD Unavailable Unavailable John Van MD Unavailable Unavailable John Van MD Unavailable Unavailable John Van MD Unavailable Unavailable John Van MD Unavailable Unavailable John Van MD Unavailable Unavailable John Van MD Unavailable Unavailable John Van MD Unavailable Unavailable John Van MD Unavailable Unavailable John Van MD Unavailable Unavailable John Van MD Unavailable Unavailable John Van MD Unavailable Unavailable John Van MD Unavailable Unavailable John Van MD Unavailable Unavailable John Van MD Unavailable Unavailable John Van MD Unavailable Unavailable John Van MD Unavailable Unavailable John Van MD Unavailable Unavailable John Van MD Unavailable Unavailable John Van MD Unavailable Unavailable John Van MD Unavailable Unavailable John Van MD Unavailable Unavailable VanJohn villafana MD Unavailable Unavailable VanJohn villafana MD Unavailable Unavailable Vaneenenaam, John Morillo MD Unavailable Unavailable Vaneenenaam, John Morillo MD Unavailable Unavailable Vaneenenaam, John Morillo MD Unavailable Unavailable Vaneenenaam, John Morillo MD Unavailable Unavailable Vaneenenaam, John Morillo MD Unavailable Unavailable Vaneenhumphreyam, John Morillo MD Unavailable Unavailable VaneenhumphreyamJohn MD Unavailable Unavailable Lizette Thomas MD Unavailable Unavailable Lizette Thomas MD Unavailable Unavailable Lizette Thomas MD Unavailable Unavailable Lizette Thomas MD Unavailable Unavailable Lizette Thomas MD Unavailable Unavailable Lizette Thomas MD Unavailable Unavailable Lizette Thomas MD Unavailable Unavailable Lizette Thomas MD Unavailable Unavailable Lizette Thomsa MD Unavailable Unavailable Lizette Thomas MD Unavailable Unavailable Lizette Thomas MD Unavailable Unavailable Lizette Thomas MD Unavailable Unavailable Lizette Thomas MD Unavailable Unavailable Lizette Thomas MD Unavailable Unavailable Lizette Thomas MD Unavailable Unavailable Lizette Thomas MD Unavailable Unavailable Lizette Thomas MD Unavailable Unavailable Lizette Thomas MD Unavailable Unavailable Lizette Thomas MD Unavailable Unavailable Lizette Thomas MD Unavailable Unavailable Lizette Thomas MD Unavailable Unavailable Lizette Thomas MD Unavailable Unavailable Lizette Thomas MD Unavailable Unavailable Lizette Thomas MD Unavailable Unavailable Lizette Thomas MD Unavailable Unavailable Lizette Thomas MD Unavailable Unavailable Lizette Thomas MD Unavailable Unavailable Lizette Thomas MD Unavailable Unavailable Lizette Thomas MD Unavailable Unavailable Lizette Thomas MD Unavailable Unavailable Lizette Thomas MD Unavailable Unavailable Lizette Thomas MD Unavailable Unavailable Lizette Thomas MD Unavailable Unavailable Lizette Thomas MD Unavailable Unavailable Lizette Thomas MD Unavailable Unavailable Lizette Thomas MD Unavailable Unavailable Lizette Thomas MD Unavailable Unavailable Lizette Thomas MD Unavailable Unavailable Lizette Thomas MD Unavailable Unavailable Lizette Thomas MD Unavailable Unavailable Lizette Thomas MD Unavailable Unavailable Lizette Thomas MD Unavailable Unavailable Thomas, Barney Moid MD Unavailable Unavailable Thomas, Barney Moid MD Unavailable Unavailable Thomas, Barney Moid MD Unavailable Unavailable Thomas, Barney Moid MD Unavailable Unavailable Thomas, Barney Moid MD Unavailable Unavailable Thomas, Barney Moid MD Unavailable Unavailable Thomas, Barney Moid MD Unavailable Unavailable Thomas, Barney Moid MD Unavailable Unavailable Thomas, Barney Moid MD Unavailable Unavailable Thomas, Barney Moid MD Unavailable Unavailable Thomas, Barney Moid MD Unavailable Unavailable Thomas, Barney Moid MD Unavailable Unavailable Thomas, Barney Moid MD Unavailable Unavailable Thomas, Barney Moid MD Unavailable Unavailable Thomas, Barney Moid MD Unavailable Unavailable Thomas, Barney Moid MD Unavailable Unavailable Thomas, Barney Moid MD Unavailable Unavailable Thomas, Barney Moid MD Unavailable Unavailable Thomas, Barney Moid MD Unavailable Unavailable Thomas, Barney Moid MD Unavailable Unavailable Thomas, Barney Moid MD Unavailable Unavailable Thomas, Barney Moid MD Unavailable Unavailable Thomas, Barney Moid MD Unavailable Unavailable Re-disclosure Warning The records that you are about to access may contain information from federally-assisted alcohol or drug abuse programs. If such information is present, then the following federally mandated warning applies: This information has been disclosed to you from records protected by federal confidentiality rules (42 CFR part 2). The federal rules prohibit you from making any further disclosure of this information unless further disclosure is expressly permitted by the written consent of the person to whom it pertains or as otherwise permitted by 42 CFR part 2. A general authorization for the release of medical or other information is NOT sufficient for this purpose. The Federal rules restrict any use of the information to criminally investigate or prosecute any alcohol or drug abuse patient.The records that you are about to access may contain highly sensitive health information, the redisclosure of which is protected by Article 27-F of the [facility] Public Health law. If you continue you may have access to information: Regarding HIV / AIDS; Provided by facilities licensed or operated by the [facility] Office of Mental Health; or Provided by the [facility] Office for People With Developmental Disabilities. If such information is present, then the following [facility] mandated warning applies: This information has been disclosed to you from confidential records which are protected by state law. State law prohibits you from making any further disclosure of this information without the specific written consent of the person to whom it pertains, or as otherwise permitted by law. Any unauthorized further disclosure in violation of state law may result in a fine or long-term sentence or both. A general authorization for the release of medical or other information is NOT sufficient authorization for further disc losure. Allergies and Adverse Reactions Type Description Substance Reaction Status Data Source(s ) Sulfa (for allergy use only) Sulfa (for allergy use only) Warner lfa (for allergy use only) Nausea/Vomiting Active eCW1 ([facility]) Sulfa (for allergy use only) Sulfa (for allergy use only) Warner lfa (for allergy use only) Nausea/Vomiting Active eCW1 ([facility]) Family History Family Member Name Family Member Gender Family Member Status Date o f Status Description Data Source(s) Unknown Unknown Problem MEDENT ([facility]) Unknown Male Problem MEDENT ([facility]) Encounters Encounter Providers Location Date Indications Data Source(s ) Outpatient Attender: Cynthia [email or web address] 12:00:00 AM EST - 03/21/2020 03:53:35 PM EST [facility] Outpatient Attender: John Van MD Physical Therap y 07/18/2019 11:00:00 AM EDT [facility] ([facility]) Outpatient Referrer: Rodolfo Thomas MD 05/30/2019 03:11:00 PM E DT [facility] Radiology Imaging Outpatient Attender: John Van MD Physical Therap y 05/14/2019 10:45:00 AM EDT MED[facility] ([facility]) Outpatient Referrer: Rodolfo Thomas MD 04/17/2019 08:01:[address] [facility] Radiology Imaging [facility] [address] [address] 03/02/2019 12:00:00 AM EST [facility] Referrer: Rodolfo Thomas MD 02/27/2019 08:13:00 AM E [facility] Radiology Imaging [facility] [address] [phone] 02/05/2019 12:00:00 AM EST [facility] Immunizations Vaccine Date Status Description Data Source(s) INFLUENZA VACCINE QUADRIVALENT (65 YR UP)/MF59 C.1/PF 11/23/2019 12:00:00 AM EDT completed [facility] Medications Medication Brand Name Start Date Product Form Dose Route Admi nistrative Instructions Pharmacy Instructions Status Indications Reaction Description Data Source(s) torsemide 20 MG Oral Tablet torsemide (DEMADEX) 20 MG tablet torsemide (DEMADEX) 20 MG tablet 01/24/2020 12:00:00 AM EST 1 {tbl} Oral acti ve Take 1 tablet by mouth 2 (two) times a day [facility] 0.005 % 01/15/2020 12:00:00 AM EST drops 7 INSTILL 1 DROP INTO BOTH EYES AT BEDTIME INSTILL 1 DROP INTO BOTH EYES AT BEDTIME SOLD: 2020 [facility] Potassium Chloride 8 MEQ Oral Tablet potassium chlorid e (KLOR-CON) 8 MEQ tablet potassium chloride (KLOR-CON) 8 MEQ tablet 01/14/2020 12:00:00 AM EST 3 {tbl} Oral active Take 3 tablets by mo uth daily [facility] Fluoxetine 20 MG Oral Capsule FLUoxetine (PROZAC) 20 M G capsule FLUoxetine (PROZAC) 20 MG capsule 01/09/2020 12:00:00 AM EST 1 {capsule} Oral active Take 1 capsule by mouth daily [facility] 8 mEq 08/08/2019 12:00:00 AM EDT tablet extended release 90 TAKE 1 TABLET BY MOUTH THREE TIMES A DAY TAKE 1 TABLET BY MOUTH THREE TIMES A DAY SOLD: 08/15/2019 [facility] 8 mEq 08/08/2019 12:00:00 AM EDT tablet extended release 21 TAKE 1 TABLET BY MOUTH THREE TIMES A DAY TAKE 1 TABLET BY MOUTH THREE TIMES A DAY SOLD: 01/09/2020 [facility] 8 mEq 04/27/2019 12:00:00 AM EST tablet extended release 90 TAKE 1 TABLET BY MOUTH THREE TIMES A DAY TAKE 1 TABLET BY MOUTH THREE TIMES A DAY SOLD: 05/08/2019 [facility] 8 mEq 04/27/2019 12:00:00 AM EST tablet extended release 90 TAKE 1 TABLET BY MOUTH THREE TIMES A DAY TAKE 1 TABLET BY MOUTH THREE TIMES A DAY SOLD: 06/08/2019 [facility] 20 mg 04/27/2019 12:00:00 AM EST capsule 90 TAKE ONE CAPSULE BY MOUTH EVERY DAY TAKE ONE CAPSULE BY MOUTH EVERY DAY SOLD: 05/08/2019 [facility] 8 mEq 04/27/2019 12:00:00 AM EST tablet extended release 90 TAKE 1 TABLET BY MOUTH THREE TIMES A DAY TAKE 1 TABLET BY MOUTH THREE TIMES A DAY SOLD: 07/12/2019 [facility] 500 mg 04/06/2019 12:00:00 AM EST tablet 10 TAKE 1 TABLET (500MG) BY MOUTH TWO TIMES A DAY FOR 5 DAYS TAKE 1 TABLET (500MG) BY MOUTH TWO TIMES A DAY FOR 5 DAYS SOLD: 04/06/2019 [facility] 75 mg 04/03/2019 12:00:00 AM EST capsule 10 TAKE ONE CAPSULE BY MOUTH TWICE A DAY FOR 5 DAYS TAKE ONE CAPSULE BY MOUTH TWICE A DAY FOR 5 DAYS SOLD: 04/03/2019 [facility] Doxycycline Hyclate 100 MG UNK 03/02/2019 12:00:00 AM EST active 1 capsule eCW1 ([facility]) ProAir HFA 108 (90 Base) MCG/ACT UNK 03/02/2019 12:00:00 AM EST active 2 puffs as needed eCW1 ([facility]) Zofran ODT 4 MG UNK 03/02/2019 12:00:00 AM EST active 1 tablet on the tongue and allow to dissolve eCW1 ([facility]) Meclizine Hydrochloride 12.5 MG Oral Tablet Meclizine HCl 12.5 MG Meclizine HCl 12.5 MG 02/05/2019 12:00:00 AM EST active 2 tablets as needed eCW1 ([facility]) Meclizine Hydrochloride 12.5 MG Oral Tablet Meclizine HCl 12.5 MG Meclizine HCl 12.5 MG 02/05/2019 12:00:00 AM EST active 1 tab eCW1 ([facility]) 0.005 % 12/21/2018 12:00:00 AM EDT drops 7 INSTILL 1 DROP INTO BOTH EYES AT BEDTIME INSTILL 1 DROP INTO BOTH EYES AT BEDTIME SOLD: 08/15/2019 [facility] 0.005 % 12/21/2018 12:00:00 AM EDT drops 7 INSTILL 1 DROP INTO BOTH EYES AT BEDTIME INSTILL 1 DROP INTO BOTH EYES AT BEDTIME SOLD: 05/29/2019 [facility] 0.005 % 12/21/2018 12:00:00 AM EDT drops 7 INSTILL 1 DROP INTO BOTH EYES AT BEDTIME INSTILL 1 DROP INTO BOTH EYES AT BEDTIME SOLD: 03/09/2019 [facility] 10 mg 09/27/2018 12:00:00 AM EDT tablet 14 TAKE ONE TABLET BY MOUTH EVERY DAY TAKE ONE TABLET BY MOUTH EVERY DAY SOLD: 05/13/2019 [facility] 20 mg 09/27/2018 12:00:00 AM EDT capsule 62 TAKE ONE CAPSULE BY MOUTH EVERY DAY TAKE ONE CAPSULE BY MOUTH EVERY DAY SOLD: 08/07/2019 [facility] potassium chloride SA (K-DUR,KLOR-CON) 20 MEQ tablet 07738-351-50 60 meq Oral aborted Take 60 mEq by mouth daily [facility] Bumetanide 2 MG Oral Tablet bumetanide (BUMEX) 2 MG ta blet bumetanide (BUMEX) 2 MG tablet 2 mg Oral aborted Take 2 mg by m outh daily [facility] Coenzyme Q10 (CO Q-10 PO) 1 {tbl} Oral abor harry Take 1 tablet by mouth daily [facility] Insurance Providers Payer name Policy type / Coverage type Policy ID Covered constitution party ID Covered constitution party's relationship to wheeler Policy Wheeler Plan Information UMR [facility] [id number] SP [id number] MEDICARE [id number] SP [id number] UMR [id number] UMR [id number] Radha [id number] UMR O [id number] S [id number] MEDICARE C [id number] S [id number] [facility] [id number] SP [id number] MEDICARE [id number] SP [id number] A UMR O [id number] S [id number] Medicare Inscription [facility] Medicare Primary [id number] Self [id number] Umr Commercial [id number] Self [id number] [employer] [id number] SP [id number] Medicare Inscription [facility] Medicare Primary [id number] Self [id number] [place] (pr) Medigap Part B [id number] Self [id number] [place] (pr) Medigap Part B [id number] Self [id number] Medicare Dme Supplies Medigap Part B [id number] Self [id number] [place] [id number] Self [id number] POMCO [id number] SP [id number] MEDICARE [id number] SP [id number] A [employer]OM[employer] [id number] Radha [id number] MEDICARE [id number] Radha [id number] A [employer]OMCO [id number] SP [id number] MEDICARE P [id number] S [id number] A [employer] PPO O UNAVAILABLE S UNAVAILA BLE AARP S UNAVAILABLE S UNAVAILA BLE MEDICARE P UNAVAILABLE S UNAVAILA BLE [id number] A Problems, Conditions, and Diagnoses Code Display Name Description Problem Type Effective Dates Data Source(s) F41.9 Anxiety Anxiety [id number] 03/21/2020 12:00:00 AM ES T [facility] E78.2 Mixed hyperlipidemia Mixed hyperlipidemia Diagnosis 03/21/2020 02:31:05 PM EST [facility] I10 Essential (primary) hypertension Essential (primary) h ypertension Diagnosis 03/21/2020 02:31:05 PM EST [facility] I25.10 Atherosclerotic heart diseas e of [place] coronary artery without angina pectoris Atherosclerotic heart disease of [place] Diagnosis 03/21/2020 02:31:05 PM EST [facility] Surgeries/Procedures Procedure Description Date Indications Data Source(s) ECG ROUTINE ECG W/LEAST 12 LDS W/I&R POCT AMB EKG Routine 03/21/2020 3:32 PM EST Essential (primary) hypertension 03/21/2020 08:32:00 PM EST Essential (primary) hypertension [facility] Essential (primary) hypertension RADIOLOGIC EXAMINATION KNEE 3 VIEWS 07/18/2019 12:00:0 0 AM EDT [facility] ([facility]) RADEX ANKLE COMPLETE MINIMUM 3 VIEWS 05/14/2019 12:00: 00 AM EDT [facility] ([facility]) RADEX ANKLE COMPLETE MINIMUM 3 VIEWS 03/23/2019 12:00: 00 AM EST [facility] ([facility]) RADEX ANKLE COMPLETE MINIMUM 3 VIEWS 03/01/2019 12:00: 00 AM EST [facility] ([facility]) APPLICATION SHORT LEG CAST BELOW KNEE-TOE 02/15/2019 1 2:00:00 AM EST [facility] ([facility]) RADEX ANKLE COMPLETE MINIMUM 3 VIEWS 02/15/2019 12:00: 00 AM EST [facility] ([facility] REAGENT STRIP/BLOOD GLUCOSE 02/05/2019 12:00:00 AM EST eCW1 ([facility]) Social History Code Duration Value Status Description Data Source(s ) Alcohol intake 03/21/2020 12:00:00 AM EST No completed [facility] Smoking 03/21/2020 12:00:00 AM EST Former smoker completed Former smoker [facility] Smoking 02/15/2019 12:00:00 AM EST Patient has never smoked co mpleted Patient has never smoked [facility] ([facility]) Vital Signs ID Date Data Source UNK Name Value Range Interpretation Code Description Data Source(s) Oxygen saturation in Arterial blood by Pulse oximetry 97 % 97 % [facility] Body mass index (BMI) [Ratio] 35.12 kg/m2 35.12 kg/m2 [facility] Body weight 92.806 kg 92.806 kg [facility] Body height 162.6 cm 162.6 cm [facility] Heart rate 59 /min 59 /min [facility] Diastolic blood pressure 82 mm[Hg] 82 mm[Hg] [facility] Systolic blood pressure 112 mm[Hg] 112 mm[Hg] [facility] Diastolic blood pressure 88 mm[Hg] 88 mm[Hg] eCW1 ([facility]) Systolic blood pressure 146 mm[Hg] 146 mm[Hg] e CW1 ([facility]) Body temperature 98.1 [degF] 98.1 [degF] eCW1 ( [facility]) Respiratory rate 20 /min 20 /min eCW1 ([facility]) Heart rate 75 /min 75 /min eCW1 ([facility]) Body mass index (BMI) [Ratio] 35.70 kg/m2 35.70 kg/m2 eCW1 ([facility]) Body height 64 [in_us] 64 [in_us] eCW1 ([facility]) Body weight Measured 208 [lb_av] 208 [lb_av] eC W1 ([facility]) Diastolic blood pressure 78 mm[Hg] 78 mm[Hg] eCW1 ([facility]) Systolic blood pressure 197 mm[Hg] 197 mm[Hg] e CW1 ([facility]) Body temperature 97.6 [degF] 97.6 [degF] eCW1 ( [facility]) Respiratory rate 20 /min 20 /min eCW1 ([facility]) Heart rate 63 /min 63 /min eCW1 ([facility]) Body mass index (BMI) [Ratio] 29 kg/m2 29 kg/ m2 eCW1 ([facility]) Body height 64 [in_us] 64 [in_us] eCW1 ([facility]) Body weight Measured 211 [lb_av] 211 [lb_av] eC W1 ([facility]) Patient Treatment Plan of Care Planned Activity Planned Date Details Description Data Source (s) torsemide 20 MG Oral Tablet 01/24/2020 12:00:00 AM EST [facility] Potassium Chloride 8 MEQ Oral Tablet 01/14/2020 12:00:00 AM EST [facility] Fluoxetine 20 MG Oral Capsule 01/09/2020 12:00:00 AM EST [facility] ProAir HFA 108 (90 Base) MCG/ACT 03/02/2019 12:00:00 AM EST eCW1 ([facility]) Zofran ODT 4 MG 03/02/2019 12:00:00 AM EST eCW1 ([facility]) Doxycycline Hyclate 100 MG 03/02/2019 12:00:00 AM EST eCW1 ([facility]) Meclizine Hydrochloride 12.5 MG Oral Tablet 02/05/2019 12:00:00 AM EST eCW1 ([facility]) Meclizine Hydrochloride 12.5 MG Oral Tablet 02/05/2019 12:00:00 AM EST eCW1 ([facility]) Coenzyme Q10 (CO Q-10 PO) [facility] Bumetanide 2 MG Oral Tablet [facility] potassium chloride SA (K-DUR,KLOR-CON) 20 MEQ tablet [facility]
--- NOTE | 2020-04-04 20:23 | REPVR ---
PROCEDURE INFORMATION: Exam: CT Head Without Contrast Exam date and time: 04/04/2020 7:49 PM Age: 89 years old Clinical indication: Pain; Dizziness; Headache TECHNIQUE: Imaging protocol: Computed tomography of the head without contrast. Radiation optimization: All CT scans at this facility use at least one of these dose optimization techniques: automated exposure control; mA and/or kV adjustment per patient size (includes targeted exams where dose is matched to clinical indication); or iterative reconstruction. COMPARISON: No relevant prior studies available. FINDINGS: Brain: There is no CT evidence for an acute large vessel territorial infarct. There are mild non-specific foci of low attenuation in the periventricular white matter, which are likely the sequela of chronic small vessel ischemic injury. No mass effect, midline shift, or herniation is noted. Incidental note is made of calcifications in the globus pallidus bilaterally. Cerebral ventricles: The ventricles are mildly dilated in proportion to the sulci, which is compatible with mild generalized cerebral volume loss. Bones/joints: The skull is intact. No suspicious osteolytic or osteoblastic lesion. Paranasal sinuses: The imaged portions of the sinuses are well-aerated. No air-fluid levels are noted in the sinuses. Mastoid air cells: There is poor pneumatization of the mastoid air cells bilaterally. Vasculature: There are atherosclerotic calcifications of the intracranial portion of the left vertebral artery and both internal carotid arteries. Soft tissues: Unremarkable. IMPRESSION: No acute intracranial abnormality. Electronically signed by: Samuel Smith On 04/04/2020 20:23:37 PM
[2020-04-04 20:25] VITALS: BP 204/112
[2020-04-04 20:26] LABS: BASO % 0.5 % (0.0-1.0); EOS # 0.2 10^3/uL (0.0-0.5); EOS % 2.2 % (0.0-3.0); HEMATOCRIT 44.2 % (36.0-47.0); HEMOGLOBIN 14.5 g/dl (12.0-15.5); LYMPH # 3.2 10^3/uL (1.5-5.0); LYMPH % 36.9 % (24.0-44.0); MEAN CORPUSCULAR HEMOGLOBIN 31.1 pg (27.0-33.0); MEAN CORPUSCULAR HGB CONC 32.8 g/dl (32.0-36.5); MEAN CORPUSCULAR VOLUME 94.8 fl (80.0-96.0); MONO # 0.8 10^3/uL (0.0-0.8); MONO % 9.3 % (2.0-8.0); NEUTROPHILS # 4.4 10^3/uL (1.5-8.5); NEUTROPHILS % 50.8 % (36.0-66.0); PLATELET COUNT, AUTOMATED 164 10^3/uL (150-450); RED BLOOD COUNT 4.66 10^6/uL (4.00-5.40); WHITE BLOOD COUNT 8.7 10^3/uL (4.0-10.0)
--- NOTE | 2020-04-04 20:26 | REPVR ---
PROCEDURE INFORMATION: Exam: XR Chest, 2 Views Exam date and time: 04/04/2020 8:02 PM Age: 89 years old Clinical indication: Chest pain TECHNIQUE: Imaging protocol: XR of the chest Views: 2 views. COMPARISON: CR PORTABLE CHEST X-RAY 02/09/2020 6:05 AM FINDINGS: Lungs: Unremarkable. No consolidation. No pulmonary edema. Pleural spaces: Unremarkable. No pleural effusion. No pneumothorax. Heart/Mediastinum: Unremarkable. No cardiomegaly. Vasculature: There are atherosclerotic calcifications of the aortic arch. Bones/joints: There are endplate spurs in the thoracic spine. 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 Organs: There are surgical clips in the right upper quadrant of the abdomen. IMPRESSION: No acute findings. Electronically signed by: Samuel Smith On 04/04/2020 20:26:07 PM
--- OUTSIDE RECORDS SUMMARY | 2020-04-04 20:36 | CCD ---
Author Author [facility] Organization [facility] Address Unknown Phone Unavailable Care Team Providers Care Self Defense Instructor Name Role Phone Avani Thayer Unavailable Unavailable [...] Thomas, Barney Moid MD Unavailable Unavailable Thomas, Braney Moid MD Unavailable Unavailable Thomas, Barney Moid [...] is protected by Article 27-F of the [facility] Public Health law. If you continue you may have access to information: Regarding HIV / AIDS; Provided by facilities licensed or operated by the [facility] Office of Mental Health; or Provided by the [facility] Office for People With Developmental Disabilities. If such information is present, then the following [facility] mandated warning applies: This information has [...] law may result in a fine or detention sentence or both. A general authorization for the release of medical or other information is NOT sufficient authorization for further disc losure. Allergies and Adverse Reactions Type Description Substance Reaction Status Data Source(s ) Sulfa (for allergy use only) Sulfa (for allergy use only) Warner lfa (for allergy use only) Nausea/Vomiting Active eCW1 (Formerly [facility]) Sulfa (for allergy use only) Sulfa (for allergy use only) Warner lfa (for allergy use only) Nausea/Vomiting Active eCW1 ([facility]ly [facility]) Family History Family Member Name Family Member Gender Family Member Status Date o f Status Description Data Source(s) Unknown Unknown Problem MEDENT ([facility]) Unknown Male Problem MEDENT ([facility]) Encounters Encounter Providers Location Date Indications Data Source(s ) Outpatient Attender: Cynthia [email or web address] 12:00:00 AM EST - 03/21/2020 03:53:35 PM EST [facility] Outpatient Attender: John Van MD Physical Therap y 07/18/2019 11:00:00 AM EDT MED[facility] ([facility]) Outpatient Referrer: Rodolfo Thomas MD 05/30/2019 03:11:00 PM E DT [facility] Outpatient Attender: John Van MD Physical Therap y 05/14/2019 10:45:00 AM EDT MEDENT ([facility]) Outpatient Referrer: Rodolfo Thomas MD 04/17/2019 08:01:[address] [facility] [address] [address] 03/02/2019 12:00:00 AM EST eCW1 (Formerly [facility]) Outpatient Referrer: Rodolfo Thomas MD 02/27/2019 08:13:00 AM E [facility] [address] [address] 02/05/2019 12:00:00 AM EST eCW1 (Formerly [facility]) Immunizations Vaccine Date Status Description Data Source(s) [...] by mouth 2 (two) times a day [facility] 0.005 % 01/15/2020 12:00:00 AM EST drops 7 INSTILL 1 DROP INTO BOTH EYES AT BEDTIME INSTILL 1 DROP INTO BOTH EYES AT BEDTIME SOLD: 2020 [facility] Potassium Chloride 8 MEQ Oral Tablet potassium chlorid e (KLOR-CON) 8 MEQ tablet potassium chloride (KLOR-CON) 8 MEQ tablet 01/14/2020 12:00:00 AM EST 3 {tbl} Oral active Take 3 tablets by mo uth daily [facility] Fluoxetine 20 MG Oral Capsule FLUoxetine (PROZAC) 20 M G capsule FLUoxetine (PROZAC) 20 MG capsule 01/09/2020 12:00:00 AM EST 1 {capsule} Oral active Take 1 capsule by mouth daily [facility] 8 mEq 08/08/2019 12:00:00 AM EDT tablet [...] DAY FOR 5 DAYS SOLD: 04/03/2019 [facility] Doxycycline Hyclate 100 MG UNK 03/02/2019 12:00:00 AM EST active 1 capsule eCW1 ([facility]) ProAir HFA 108 (90 Base) MCG/ACT UNK 03/02/2019 12:00:00 AM EST active 2 puffs as needed eCW1 ([facility]) Zofran ODT 4 MG UNK 03/02/2019 12:00:00 AM EST active 1 tablet on the tongue and allow to dissolve eCW1 ([facility]) Meclizine Hydrochloride 12.5 MG Oral Tablet Meclizine HCl 12.5 MG Meclizine HCl 12.5 MG 02/05/2019 12:00:00 AM EST active 2 tablets as needed eCW1 ([facility]) Meclizine Hydrochloride 12.5 MG Oral Tablet Meclizine HCl 12.5 MG Meclizine HCl 12.5 MG 02/05/2019 12:00:00 AM EST active 1 tab eCW1 ([facility]) 0.005 % 12/21/2018 12:00:00 AM [...] CAPSULE BY MOUTH EVERY DAY SOLD: 08/07/2019 [facility] potassium chloride SA (K-DUR,KLOR-CON) 20 MEQ tablet [id number] meq Oral aborted Take 60 mEq by mouth daily [facility] Bumetanide 2 MG Oral Tablet bumetanide (BUMEX) 2 MG ta blet bumetanide (BUMEX) 2 MG tablet 2 mg Oral aborted Take 2 mg by m outh daily [facility] Coenzyme Q10 (CO Q-10 PO) 1 {tbl} Oral abor harry Take 1 tablet by mouth daily [facility] Insurance Providers Payer name Policy type / Coverage type Policy ID Covered alliance party ID Covered alliance party's relationship to wheeler Policy Wheeler Plan Information [facility]MR [facility] [id number] SP [id number] MEDICARE [id number] SP [id number] UMR [id number] UMR [id number] Radha [id number] UMR O [id number] S [id number] MEDICARE C [id number] S [id number] [facility] [id number] SP [id number] MEDICARE [id number] SP [id number] A UMR O [id number] S [id number] Medicare [facility] Medicare Primary [id number] Self [id number] Umr Commercial [id number] Self [id number] POMCO [id number] SP [id number] Medicare [facility] Medicare Primary [id number] Self [id number] [place] (pr) Medigap Part B [id number] Self [id number] [place] (pr) Medigap Part B [id number] Self [id number] Medicare Dme Supplies Medigap Part B [id number] Self [id number] [place] Primary [id number] Self [id number] POMCO [id number] SP [id number] MEDICARE [id number] SP [id number] A POMCO [id number] Radha [id number] MEDICARE [id number] Radha [id number] A POMCO [id number] SP [id number] MEDICARE P [id number] S [id number] A [place] PPO O UNAVAILABLE S UNAVAILA BLE AARP S UNAVAILABLE S UNAVAILA BLE MEDICARE P UNAVAILABLE S UNAVAILA BLE [id number] A Problems, Conditions, and Diagnoses Code Display Name Description Problem Type Effective Dates Data Source(s) F41.9 Anxiety Anxiety [id number] 03/21/2020 12:00:00 AM ES T [facility] E78.2 Mixed hyperlipidemia Mixed hyperlipidemia Diagnosis 03/21/2020 02:31:05 PM EST [facility] I10 Essential (primary) hypertension Essential (primary) h ypertension Diagnosis 03/21/2020 02:31:05 PM EST [facility] I25.10 Atherosclerotic heart diseas e of [place] coronary artery without angina pectoris Atherosclerotic heart disease of [place] Diagnosis 03/21/2020 02:31:05 PM EST [facility] Surgeries/Procedures Procedure Description Date Indications Data Source(s) ECG ROUTINE ECG W/LEAST 12 LDS W/I&R POCT AMB EKG Routine 03/21/2020 3:32 PM EST Essential (primary) hypertension 03/21/2020 08:32:00 PM EST Essential (primary) hypertension [facility] Essential (primary) hypertension RADIOLOGIC EXAMINATION KNEE 3 VIEWS 07/18/2019 12:00:0 0 AM EDT [facility] ([facility]) RADEX ANKLE COMPLETE MINIMUM 3 VIEWS 05/14/2019 12:00: 00 AM EDT [facility] ([facility]) RADEX ANKLE COMPLETE MINIMUM 3 VIEWS 03/23/2019 12:00: 00 AM EST [facility] ([facility]) RADEX ANKLE COMPLETE MINIMUM 3 VIEWS 03/01/2019 12:00: 00 AM EST [facility] ([facility]) APPLICATION SHORT LEG CAST BELOW KNEE-TOE 02/15/2019 1 2:00:00 AM EST [facility] ([facility]) RADEX ANKLE COMPLETE MINIMUM 3 VIEWS 02/15/2019 12:00: 00 AM EST [facility] ([facility] REAGENT STRIP/BLOOD GLUCOSE 02/05/2019 12:00:00 AM EST eCW1 ([facility]) Social History Code Duration Value Status Description Data Source(s ) Alcohol intake 03/21/2020 12:00:00 AM EST No completed [facility] Smoking 03/21/2020 12:00:00 AM EST Former smoker completed Former smoker [facility] Smoking 02/15/2019 12:00:00 AM EST Patient has never smoked co mpleted Patient has never smoked [facility] ([facility]) Vital Signs ID Date Data Source UNK Name Value Range Interpretation Code Description Data Source(s) Oxygen saturation in Arterial blood by Pulse oximetry 97 % 97 % [facility] Body mass index (BMI) [Ratio] 35.12 kg/m2 35.12 kg/m2 [facility] Body weight 92.806 kg 92.806 kg [facility] Body height 162.6 cm 162.6 cm [facility] Heart rate 59 /min 59 /min [facility] Diastolic blood pressure 82 mm[Hg] 82 mm[Hg] [facility] Systolic blood pressure 112 mm[Hg] 112 mm[Hg] [facility] Diastolic blood pressure 88 mm[Hg] 88 mm[Hg] eCW1 ([facility]) Systolic blood pressure 146 mm[Hg] 146 mm[Hg] e CW1 ([facility]) Body temperature 98.1 [degF] 98.1 [degF] eCW1 ( [facility]) Respiratory rate 20 /min 20 /min eCW1 ([facility]) Heart rate 75 /min 75 /min eCW1 ([facility]) Body mass index (BMI) [Ratio] 35.70 kg/m2 35.70 kg/m2 eCW1 ([facility]) Body height 64 [in_us] 64 [in_us] eCW1 ([facility]) Body weight Measured 208 [lb_av] 208 [lb_av] eC W1 ([facility]) Diastolic blood pressure 78 mm[Hg] 78 mm[Hg] eCW1 ([facility]) Systolic blood pressure 197 mm[Hg] 197 mm[Hg] e CW1 ([facility]) Body temperature 97.6 [degF] 97.6 [degF] eCW1 ( [facility]) Respiratory rate 20 /min 20 /min eCW1 ([facility]) Heart rate 63 /min 63 /min eCW1 ([facility]) Body mass index (BMI) [Ratio] 29 kg/m2 29 kg/ m2 eCW1 ([facility]) Body height 64 [in_us] 64 [in_us] eCW1 ([facility]) Body weight Measured 211 [lb_av] 211 [lb_av] eC W1 ([facility]) Patient Treatment Plan of Care Planned Activity Planned Date Details Description Data Source (s) torsemide 20 MG Oral Tablet 01/24/2020 12:00:00 AM EST [facility] Potassium Chloride 8 MEQ Oral Tablet 01/14/2020 12:00:00 AM EST [facility] Fluoxetine 20 MG Oral Capsule 01/09/2020 12:00:00 AM EST [facility] ProAir HFA 108 (90 Base) MCG/ACT 03/02/2019 12:00:00 AM EST eCW1 ([facility]) Zofran ODT 4 MG 03/02/2019 12:00:00 AM EST eCW1 ([facility]) Doxycycline Hyclate 100 MG 03/02/2019 12:00:00 AM EST eCW1 ([facility]) Meclizine Hydrochloride 12.5 MG Oral Tablet 02/05/2019 12:00:00 AM EST eCW1 ([facility]) Meclizine Hydrochloride 12.5 MG Oral Tablet 02/05/2019 12:00:00 AM EST eCW1 ([facility]) Coenzyme Q10 (CO Q-10 PO) [facility] Bumetanide 2 MG Oral Tablet [facility] potassium chloride SA (K-DUR,KLOR-CON) 20 MEQ tablet [facility]
[2020-04-04] MEDS ORDERED: MECLIZINE 25 MG TABLET PO ONE (21:00)
[2020-04-04 21:12] LABS: ALBUMIN 3.4 GM/DL (3.2-5.2); ALT/SGPT 47 U/L (12-78); BILIRUBIN,DIRECT < 0.1 MG/DL (0.0-0.2); BILIRUBIN,TOTAL 0.4 MG/DL (0.2-1.0); BLOOD UREA NITROGEN 21 MG/DL (7-18); CALCIUM LEVEL 8.9 MG/DL (8.8-10.2); CARBON DIOXIDE LEVEL 35 MEQ/L (21-32); CHLORIDE LEVEL 102 MEQ/L (98-107); CK-MB VALUE MASS 1.4 NG/ML (<3.6); CPK CREATINE PHOSPHOKINASE 94 U/L (26-192); CREATININE FOR GFR 0.96 MG/DL (0.55-1.30); FREE T4 0.94 NG/DL (0.76-1.46); GLOMERULAR FILTRATION RATE 58.3 (>32); GLUCOSE, FASTING 112 MG/DL (70-100); MB/CK RELATIVE INDEX 1.49 (< OR =4); POTASSIUM SERUM 3.8 MEQ/L (3.5-5.1); SODIUM LEVEL 142 MEQ/L (136-145); TOTAL PROTEIN 7.2 GM/DL (6.4-8.2); TROPONIN I < 0.02 NG/ML (< 0.10)
--- NOTE | 2020-04-04 21:30 | ECGEPIP ---
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
[2020-04-04 21:50] VITALS: BP 194/92
[2020-04-04] MEDS ORDERED: MECL1TAB31 PO (21:51)
== END 2020-04-04 22:04 | disposition home or self-care (01) ==
LOC: M ED 19:23
DX: R42 Dizziness and giddiness (principal); I10 Essential (primary) hypertension; E78.5 Hyperlipidemia, unspecified; H40.9 Unspecified glaucoma; M51.36 Other intervertebral disc degeneration, lumbar region; Z79.82 Long term (current) use of aspirin; Z79.899 Other long term (current) drug therapy; Z88.2 Allergy status to sulfonamides; Z88.1 Allergy status to other antibiotic agents

== ENCOUNTER → 2020-04-25 | Outpatient (CLI) | payer MEDICARE, OTHER ==
[~2020-04-25] MED LIST changes: +E-Z-GAS II EFFERVESCENT PACKET (SODIUM BICARB./CITRIC ACID/SIMETHICONE) As Ordered ONE; +E-Z-HD 98% w/w 340GM SUSP BTL As Ordered ONE; +E-Z-PAQUE 96% w/w SUSP 176GM BTL As Ordered ONE; +MECL1TAB31 PO
--- NOTE | 2020-04-25 08:46 | REP ---
INDICATION: COPD COMPARISON: 04/04/2020 TECHNIQUE: PA and lateral. FINDINGS: The mediastinum and cardiac silhouette are normal. The lung quinones are clear and without acute consolidation, effusion, or pneumothorax. The skeletal structures are intact and normal. IMPRESSION: No acute cardiopulmonary process. <Electronically signed by Manoj Anton > 04/25/20 [id number]
--- NOTE | 2020-04-25 17:01 | REP ---
INDICATION: PEPTIC ULCER. COMPARISON: None TECHNIQUE: This procedure was performed by Arielle Valero [facility], under the direct supervision of Dr. John. Images were reviewed with Dr. John prior to dictation. Liquid barium and gas producing crystals were given in the erect position, as well as liquid barium in the prone oblique position in order to perform a double contrast upper GI examination. FINDINGS: The medical safety director film shows no organomegaly or pathological masses. The intestinal gas pattern is unremarkable. There are surgical betito in the right upper quadrant. The oral and pharyngeal stages of deglutition were unremarkable. Esophageal transport is prompt and efficient and there is no evidence of esophagitis, stricture, or mucosal ring. There is evidence of a hiatal hernia. There is no gastroesophageal reflux . The stomach zhou are normally outlined. The rugal folds are smooth and regular. There is no gastritis, neoplasm, or ulcerative disease. The duodenal zhou are normally outlined. The mucosal folds are smooth and regular. There is no duodenitis, peptic ulcer disease or neoplasm. 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 IMPRESSION: 1. Small hiatal hernia. 2. 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 Some fluoroscopic images are performed with last image hold technology. These images require no additional radiation. <Electronically signed by Arielle Valero > 04/25/20 [id number] <Electronically signed by Nba John > 04/25/20 [id number]
== END ==
LOC: M RAD 07:55
PROVIDERS: ATTEND Family Medicine
DX: K27.9 Peptic ulcer, site unspecified, unspecified as acute or chronic, without hemorrhage or perforation (principal); J44.9 Chronic obstructive pulmonary disease, unspecified

== ENCOUNTER 2020-08-23 12:48 | Emergency (ER) | payer MEDICARE, OTHER ==
[~2020-08-23] VITALS: Ht 162.6 cm; Wt 88.6 kg
[~2020-08-23 12:48] MED LIST changes: -E-Z-GAS II EFFERVESCENT PACKET (SODIUM BICARB./CITRIC ACID/SIMETHICONE) As Ordered ONE; -E-Z-HD 98% w/w 340GM SUSP BTL As Ordered ONE; -E-Z-PAQUE 96% w/w SUSP 176GM BTL As Ordered ONE
[2020-08-23 13:35] LABS: BASO % 0.6 % (0.0-1.0); EOS # 0.2 10^3/uL (0.0-0.5); EOS % 3.1 % (0.0-3.0); HEMOGLOBIN 14.4 g/dl (12.0-15.5); LYMPH # 1.8 10^3/uL (1.5-5.0); LYMPH % 29.6 % (24.0-44.0); MEAN CORPUSCULAR HEMOGLOBIN 31.2 pg (27.0-33.0); MEAN CORPUSCULAR HGB CONC 32.7 g/dl (32.0-36.5); MEAN CORPUSCULAR VOLUME 95.2 fl (80.0-96.0); MONO # 0.6 10^3/uL (0.0-0.8); MONO % 9.4 % (2.0-8.0); NEUTROPHILS # 3.5 10^3/uL (1.5-8.5); PLATELET COUNT, AUTOMATED 160 10^3/uL (150-450); RED BLOOD COUNT 4.62 10^6/uL (4.00-5.40); WHITE BLOOD COUNT 6.2 10^3/uL (4.0-10.0)
--- NOTE | 2020-08-23 13:44 | REP ---
INDICATION: DYSPNEA/COUGH COMPARISON: 04/25/2020 TECHNIQUE: Portable AP view of the chest FINDINGS: The mediastinum and cardiac silhouette are stable and within normal limits for portable technique. The lung quinones demonstrate chronic appearing interstitial changes without acute focal consolidation, effusion, or pneumothorax. Skeletal structures are intact. IMPRESSION: No focal consolidation or effusion appreciated. <Electronically signed by Manoj Anton > 08/23/20 1103
[2020-08-23 13:59] LABS: ALBUMIN 3.5 GM/DL (3.2-5.2); ALT/SGPT 30 U/L (12-78); BILIRUBIN,DIRECT 0.2 MG/DL (0.0-0.2); BILIRUBIN,TOTAL 0.6 MG/DL (0.2-1.0); BLOOD UREA NITROGEN 18 MG/DL (7-18); CALCIUM LEVEL 8.3 MG/DL (8.8-10.2); CARBON DIOXIDE LEVEL 34 MEQ/L (21-32); CHLORIDE LEVEL 104 MEQ/L (98-107); CREATININE FOR GFR 0.88 MG/DL (0.55-1.30); GLOMERULAR FILTRATION RATE > 60.0 (>32); GLUCOSE, FASTING 100 MG/DL (70-100); POTASSIUM SERUM 3.8 MEQ/L (3.5-5.1); SODIUM LEVEL 140 MEQ/L (136-145); TOTAL PROTEIN 6.9 GM/DL (6.4-8.2)
[2020-08-23] MEDS ORDERED: FUROSEMIDE 40MG/4ML VIAL (J1940) IV ONE (15:25)
[2020-08-23] MEDS ORDERED: POTASSIUM CHLORIDE 10 MEQ SR TABLET PO ONE (17:15)
[2020-08-23 17:41] LABS: NT-PRO BNP 44 PG/ML (<450)
[2020-08-23 18:15] VITALS: BP 141/65
--- NOTE | 2020-08-23 19:11 | ECGEPIP ---
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
== END 2020-08-23 18:41 | disposition home or self-care (01) ==
LOC: M ED 12:48
DX: J81.0 Acute pulmonary edema (principal); R06.02 Shortness of breath; I10 Essential (primary) hypertension; E78.5 Hyperlipidemia, unspecified; F32.9 Major depressive disorder, single episode, unspecified; Z79.82 Long term (current) use of aspirin; Z79.899 Other long term (current) drug therapy; Z88.2 Allergy status to sulfonamides; Z88.1 Allergy status to other antibiotic agents
CPT/HCPCS: 71045; 80048; 80076; 83880; 84484; 85025; 93005; 93041; 94760; 96374; 99285; J1940

== ENCOUNTER → 2020-09-02 | Outpatient (CLI) | payer MEDICARE, OTHER | LOC: M RAD 13:48 | PROVIDERS: ATTEND Family Medicine | DX: I50.9 Heart failure, unspecified (principal) ==

== ENCOUNTER → 2020-09-04 | Outpatient (CLI) | payer MEDICARE, OTHER ==
--- NOTE | 2020-09-05 22:35 | ECGEPIP ---
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
== END ==
LOC: M EKG 12:15
PROVIDERS: ATTEND Family Medicine
DX: I20.9 Angina pectoris, unspecified (principal); I10 Essential (primary) hypertension; R94.31 Abnormal electrocardiogram [ECG] [EKG]